=== PATIENT | male | born 1980 | race Caucasian/White ===

== ENCOUNTER 2021-05-24 15:12 | Emergency (ER) | payer SELFPAY ==
[2021-05-24] MEDS ORDERED: Bacitracin Oint 1 GM U/D Packet TOP ONE (17:12)
[2021-05-24] MEDS ORDERED: Diphtheria,Pertussis(Acell),Tetanus Vaccine 0.5 ML Syringe IM ONE (17:12)
[2021-05-24] MEDS ORDERED: Lidocaine 1% PF 2 ML SDV INJECT ONE (17:12)
== END 2021-05-24 18:10 | disposition home or self-care (01) ==
LOC: MW.ED 15:12
DX: S61.215A Laceration without foreign body of left ring finger without damage to nail, initial encounter (principal); Z23 Encounter for immunization; W26.8XXA Contact with other sharp object(s), not elsewhere classified, initial encounter
CPT/HCPCS: 12001; 73140-26-F3; 73140-F3; 90471; 90715; 99283-25